=== PATIENT | female | born 1985 | race Caucasian/White ===

== ENCOUNTER → 2016-11-14 | Outpatient (CLI) | payer OTHER ==
[~2016-11-14] MED LIST: FLUO40CA8 PO; PRENTAB26 PO; PRLSR20 PO
[2016-11-16 16:23] LABS: CHLAMYDIA TRACH RNA*** NOT DETECTED (NOT DETECTED); GC (NEIS GONORRHOEAE)RNA** NOT DETECTED (NOT DETECTED)
== END | disposition home or self-care (01) ==
LOC: C.LABSPEC 14:34
PROVIDERS: ATTEND Obstetrics & Gynecology
DX: Z34.81 Encounter for supervision of other normal pregnancy, first trimester (principal)

== ENCOUNTER → 2017-02-01 | Outpatient (CLI) | payer OTHER ==
[2017-02-01 12:47] LABS: BASO % 0.1 %; BASO ABS # 0.01 K/uL (0-0.2); COMPLETE YES; EOS % 0.8 %; HEMATOCRIT 36.5 % (37-47); IG% 0.4 %; LYMPH % 22.3 %; LYMPH ABS # 1.74 K/uL (1.2-3.4); MEAN CELL VOLUME 87.3 fL (80-100); MEAN CORPUSCULAR HEMOGLOBIN 29.7 pg (25-34); MEAN PLATELET VOLUME 10.8 fL (7.4-10.4); MONO % 4.2 %; NEUT % 72.2 %; PLATELET COUNT 225 K/uL (130-400); RED BLOOD COUNT 4.18 M/uL (4.2-5.4)
[2017-02-01 13:07] LABS: GTGD 50 Grams
== END | disposition home or self-care (01) ==
LOC: C.LAB 09:21
PROVIDERS: ATTEND Obstetrics & Gynecology
DX: Z34.81 Encounter for supervision of other normal pregnancy, first trimester (principal); Z3A.00 Weeks of gestation of pregnancy not specified

== ENCOUNTER → 2017-02-28 | Outpatient (CLI) | payer OTHER | END | disposition home or self-care (01) | LOC: C.LAB 08:08 | PROVIDERS: ATTEND Obstetrics & Gynecology | DX: O99.810 Abnormal glucose complicating pregnancy (principal); Z34.00 Encounter for supervision of normal first pregnancy, unspecified trimester ==

== ENCOUNTER 2017-05-26 09:33 | Outpatient (CLI) | payer OTHER ==
[~2017-05-26] VITALS: Ht 157.5 cm; Wt 83.0 kg
[2017-05-26] MEDS ORDERED: TERBUTALINE SULFATE 1 MG/ML VIAL SQ PRN (10:45)
[2017-05-26] MEDS ORDERED: NIFEdipine 10 MG CAP PO STA (10:54)
[2017-05-26] MEDS ORDERED: D5W AND LACTATED RINGERS 500 ML IV ONE (11:00)
--- NOTE | 2017-05-26 11:12 | HISTORY & PHYSICAL EXAMINATION ---
DATE OF ADMISSION: 05/26/2017 CHIEF COMPLAINT: Intrauterine at 33 weeks gestation and contractions. HISTORY OF PRESENT ILLNESS: The patient is a 31-year-old 2, para 1, general health is good. well dated. Due date is 07/14/2017. No problems. Her first delivery was in 2016, boy, 8 pounds 1 ounce, spontaneous vaginal delivery, 40 weeks, 36 hour labor, and 2 hour push. I was called on the morning of admission since she was having contractions, starting at about 07:30 a.m., having them every 4-5 minutes and radiating to her back. No bleeding. No leakage of fluid. She was told to come up to maternity for evaluation. PAST MEDICAL HISTORY: She had got a 2-year-old boy in good health. ALLERGIES: LAMICTAL AND TRINTELLIX. PAST SURGICAL HISTORY: No previous surgery. No significant medical conditions. SOCIAL HISTORY: No smoking. No alcohol intake. She works at [employer]. FAMILY HISTORY: Mom is 51, has cardiac disease and high blood pressure. Father 52 in good health. 1 brother and 1 sister in good health. REVIEW OF SYSTEMS: HEAD: No symptoms of frequent or severe headaches. EYES: No symptoms of blurred vision or double vision. EARS: No symptoms of frequent ear infections or difficulty hearing. PHYSICAL EXAMINATION: GENERAL: Well-developed and well-nourished 31-year-old white female, alert and oriented x3 and cooperative, in no acute distress, appears her stated age. EYES: Conjunctivae are pink. Sclerae white. No evidence of jaundice. EARS: Had normal light reflex bilaterally. NOSE: Had normal mucosa. Septum is midline. There were no polyps. THROAT: No erythema or evidence of infection. Teeth are in good state of repair. HEAD: Normocephalic. Normal distribution of hair. NECK: Supple. Trachea midline. Thyroid is not enlarged. There is no adenopathy appreciated. Both carotids are of good intensity. CHEST: Clear to auscultation and percussion. No wheezes, rales or rhonchi appreciated. ABDOMEN: Soft and nontender. Consistent with a 33-week fetus. No CVA tenderness. No fundal tenderness. PELVIC: Presenting part was floating. Cervix posterior, uneffaced and closed. MUSCULOSKELETAL: Revealed no calf tenderness. IMPRESSIONS OF THIS CASE: Intrauterine at 33 weeks gestation, rule out premature labor.
[2017-05-26] MEDS ORDERED: LACTATED RINGER'S 1000ML 1,000 ML IV SCH ×2 (11:15)
[2017-05-26] MEDS ORDERED: NURSING VERBAL MED ORDER ONE (11:15)
[2017-05-26 13:00] VITALS: Ht 157.5 cm; Wt 83.0 kg
== END 2017-05-26 13:40 | disposition home or self-care (01) ==
LOC: C.LD 09:33 → C.OPB 09:33
PROVIDERS: ATTEND Obstetrics & Gynecology
DX: O62.9 Abnormality of forces of labor, unspecified (principal); Z3A.33 33 weeks gestation of pregnancy; Z82.49 Family history of ischemic heart disease and other diseases of the circulatory system

== ENCOUNTER → 2017-06-08 | Outpatient (CLI) | payer OTHER ==
[~2017-06-08] MED LIST changes: -PRLSR20 PO
== END | disposition home or self-care (01) ==
LOC: C.LABSPEC 14:42
PROVIDERS: ATTEND Obstetrics & Gynecology
DX: J02.9 Acute pharyngitis, unspecified (principal)

== ENCOUNTER → 2017-06-14 | Outpatient (CLI) | payer OTHER | END | disposition home or self-care (01) | LOC: C.LABSPEC 14:57 | PROVIDERS: ATTEND Obstetrics & Gynecology | DX: Z34.83 Encounter for supervision of other normal pregnancy, third trimester (principal) ==

== ENCOUNTER 2017-06-22 10:46 | Observation (INO) | payer OTHER ==
[~2017-06-22] VITALS: Ht 157.5 cm; Wt 83.5 kg
[2017-06-22 11:46] VITALS: Ht 157.5 cm; Wt 83.5 kg
--- NOTE | 2017-06-22 12:24 | DIAGNOSTIC IMAGING REPORT ---
Study: biophysical profile HISTORY: Abdominal pain FINDINGS: biophysical profile is 8 out of a possible 8. heart rate is 133 bpm. Amniotic fluid index is 14 cm. Fetus is cephalic in presentation. Placenta is posterior. No evidence for placenta previa or abruptio placenta. The maternal cervix is not well seen. Russell Sepulveda contractions were noted during the exam. IMPRESSION: Normal biophysical profile. 8 out of a possible 8. Electronically signed by: Simone Linda M.D. 06/22/2017 12:23 PM Dictated Date/Time: 06/22/2017 12:21 PM
[2017-06-22] MEDS ORDERED: LACTATED RINGER'S 1000ML 500 ML IV ONE (12:56)
[2017-06-22 13:36] LABS: BASO % 0.1 %; BASO ABS # 0.02 K/uL (0-0.2); EOS % 0.2 %; EOS ABS # 0.03 K/uL (0-0.5); HEMATOCRIT 35.7 % (37-47); IG# 0.17 K/uL (0.00-0.02); LYMPH % 15.5 %; LYMPH ABS # 2.14 K/uL (1.2-3.4); MEAN CELL VOLUME 84.2 fL (80-100); MEAN CORPUSCULAR HEMOGLOBIN 28.3 pg (25-34); MEAN CORPUSCULAR HGB CONC 33.6 g/dl (32-36); MEAN PLATELET VOLUME 10.7 fL (7.4-10.4); MONO % 7.8 %; MONO ABS # 1.08 K/uL (0.11-0.59); NEUT % 75.2 %; NEUT ABS # 10.39 K/uL (1.4-6.5); PLATELET COUNT 233 K/uL (130-400); RED CELL DISTRIBUTION WIDTH CV 13.7 % (11.5-14.5); RED CELL DISTRIBUTION WIDTH SD 41.7 fL (36.4-46.3); WHITE BLOOD COUNT 13.83 K/uL (4.8-10.8)
--- NOTE | 2017-06-22 14:10 | HISTORY & PHYSICAL EXAMINATION ---
DATE OF ADMISSION: 06/22/2017 CHIEF COMPLAINT: Abdominal pain, contractions, intrauterine 36 weeks 6 days. HISTORY OF PRESENT ILLNESS: The patient is a 32-year-old 2, para 1. Her general health is good. Her present has been uneventful except for an episode of premature labor at 33 weeks gestation, at which point she was given a shot of terbutaline and placed on Procardia. Procardia was stopped about a week to 10 days ago. Her due date for this is 07/14/2017. OBSTETRICAL HISTORY: In 2014 she had an 8 pound 1 ounce boy, spontaneous vaginal delivery, 40 weeks, after an induction and a 2-hour push. Present course complicated by an episode of premature labor at 33 weeks. She woke up this morning about 9:15 a.m. She experienced severe abdominal pain and cramping, was localized mainly on the left side. She had no bleeding and she was told to come to maternity for evaluation. ALLERGIES: TRINTELLIX AND LAMICTAL. PAST SURGICAL HISTORY: She had wisdom teeth removed. PAST MEDICAL HISTORY: She is on Prozac 20 mg a day. Has a 2-year-old boy in good health. SOCIAL HISTORY: No smoking. No excessive alcohol intake. Works at [employer]. FAMILY HISTORY: Mom is 51, has heart disease. Father 52 in good health. One brother and one sister in good health. REVIEW OF SYSTEMS: HEAD: No symptoms of frequent or severe headaches. EYES: No symptoms of blurred vision or double vision. PHYSICAL EXAMINATION: GENERAL: Well-developed, well-nourished 32-year-old white female, alert, oriented x3 and cooperative, in no acute distress, appeared her stated age. EYES: Conjunctivae are pink. Sclerae white. No evidence of jaundice. EARS: Normal light reflex bilaterally. HEART: Regular rhythm. S1, S2 were normal. ABDOMEN: Soft and nontender. No abdominal tenderness. Gravid uterus, consistent with a 36 weeks' gestational size . PELVIC: Revealed a vertex presentation about a -1 station, 1-2 cm posterior, about 80% effaced. MUSCULOSKELETAL: Revealed no calf tenderness. IMPRESSIONS OF THIS CASE: Intrauterine 36 weeks 6 days, rule out labor. [facility]
[2017-06-22] MEDS ORDERED: IV FLUIDS COMPLETED PRN (16:15)
[2017-06-22] MEDS ORDERED: BUTORPHANOL TARTRATE 1 MG/ML VIAL IV PRN (18:00)
[2017-06-22] MEDS ORDERED: CALCIUM CARBONATE 500 MG CHEWABLE PO PRN (18:00)
[2017-06-22] MEDS ORDERED: ACETAMINOPHEN 325 MG TAB PO PRN (18:00)
[2017-06-22] MEDS: LACTATED RINGER'S 1000ML 1,000 ML IV SCH (18:03)
[2017-06-22 19:55] VITALS: BP 114/63; PULSE 73; TEMP 36.8
[2017-06-23 00:45] VITALS: BP 104/65; PULSE 69; TEMP 37.2; O2SAT 97
[2017-06-23] MEDS: LACTATED RINGER'S 1000ML 1,000 ML IV SCH (00:45)
[2017-06-23 04:25] VITALS: BP 108/62; PULSE 65; TEMP 36.8
[2017-06-23 07:18] VITALS: BP 100/59; PULSE 62
[2017-06-23 07:26] VITALS: TEMP 36.3
--- NOTE | 2017-06-23 08:49 | Progress Note ---
Subjective Jun 23, 2017. Subjective conversation w/ patient Ambulation: ambulating normally Voiding: no voiding problems Diet Tolerance: Regular Diet Review of Systems Constitutional: + fever Objective Vital Signs Date Time Temp Pulse Resp B/P (MAP) Pulse Ox O2 Delivery O2 Flow Rate FiO2 06/23/17 07:26 36.3 06/23/17 07:18 62 16 100/59 06/23/17 04:25 36.8 65 18 108/62 06/23/17 00:45 37.2 69 18 104/65 06/23/17 00:45 97 Room Air 06/22/17 19:55 36.8 73 16 114/63 Physical Exam General Appearance: WELL-APPEARING Respiratory/Chest: lungs clear Fundus: Non-Tender Extremities: no pedal edema, no calf tenderness Laboratory Results Last 24 Hours Test 06/22/17 13:23 06/23/17 07:00 White Blood Count 13.83 K/uL Red Blood Count 4.24 M/uL Hemoglobin 12.0 g/dL Hematocrit 35.7 % Mean Corpuscular Volume 84.2 fL Mean Corpuscular Hemoglobin 28.3 pg Mean Corpuscular Hemoglobin Concent 33.6 g/dl Platelet Count 233 K/uL Mean Platelet Volume 10.7 fL Neutrophils (%) (Auto) 75.2 % Lymphocytes (%) (Auto) 15.5 % Monocytes (%) (Auto) 7.8 % Eosinophils (%) (Auto) 0.2 % Basophils (%) (Auto) 0.1 % Neutrophils # (Auto) 10.39 K/uL Lymphocytes # (Auto) 2.14 K/uL Monocytes # (Auto) 1.08 K/uL Eosinophils # (Auto) 0.03 K/uL Basophils # (Auto) 0.02 K/uL RDW Standard Deviation 41.7 fL RDW Coefficient of Variation 13.7 % Immature Granulocyte % (Auto) 1.2 % Immature Granulocyte # (Auto) 0.17 K/uL Urine Color YELLOW Urine Appearance CLEAR Urine pH 7.5 Urine Specific [place] 1.010 Urine Protein NEG Urine Glucose (UA) NEG Urine Ketones NEG Urine Occult Blood NEG Urine Nitrite NEG Urine Bilirubin NEG Urine Urobilinogen NEG Urine Leukocyte Esterase NEG Urine WBC (Auto) 1-5 /hpf Urine RBC (Auto) 0-4 /hpf Urine Hyaline Casts (Auto) 1-5 /lpf Urine Epithelial Cells (Auto) >30 /lpf Urine Bacteria (Auto) NEG Assessment and Plan Continue Routine Care: continue routine care
--- NOTE | 2017-06-23 08:51 | Discharge Instructions ---
Discharge Instructions Date of Service Jun 23, 2017. Admission Reason for Admission: R/O Labor Discharge Discharge Diagnosis / Problem: false labor Discharge Goals Goal(s): Continuing OB care Activity Recommendations Activity Limitations: as noted below . Current Hospital Diet Patient's current hospital diet: Regular Diet Discharge Diet Recommended Diet: Regular Diet Pending Studies Studies pending at discharge: no Medical Emergencies . Who to Call and When: Medical Emergencies: If at any time you feel your situation is an emergency, please call 911 immediately. . Non-Emergent Contact Non-Emergency issues call your: Cvicu Rn Call Non-Emergent contact if: temperature is above 100.5 . . "Provider Documentation" section prepared by Ashwin Merritt. . VTE Core Measure Inpt VTE Proph given/why not?: Treatment not indicated
--- NOTE | 2017-06-23 09:14 | DISCHARGE SUMMARY ---
HOSPITAL COURSE: Mrs. Lee was about 36 weeks 6 days and she was admitted for acute abdominal pain. It was suspected that might be premature labor, was located mainly on the left side. She had difficulty walking or ambulating. It was so bad. When she called the office, she was told to go to maternity for evaluation, put her on the monitor. Monitor strip looked good. She did have few sporadic contractions. We hydrated her with IV fluids, got a reactive nonstress test, did a biophysical profile which was 8/8. Checked her cervix, which was unchanged from her previous office visit. She continued to have pain and discomfort throughout the day. We kept her on the monitor overnight, monitored her and gradually during the night, the contractions and abdominal pains slowly started to subside. On the morning after admission, she was ambulating well, eating well and was ready for discharge. We assumed she had a discharge diagnosis of false labor, but were unable to product picker any specific cause for the pain other than that. Her monitor tracings were always good. Her biophysical was 8/8. Her cervix was unchanged. She had no bleeding or vaginal discharge of any significance. She was then discharged to resume her routine care in the office.
== END 2017-06-23 09:14 | disposition home or self-care (01) ==
LOC: C.OPB 10:46 → C.LD 10:46 → C.OBG 15:00 → C.OPB 15:00 → C.OBG 16:50
PROVIDERS: ADMIT Obstetrics & Gynecology; ATTEND Obstetrics & Gynecology
DX: O99.89 Other specified diseases and conditions complicating pregnancy, childbirth and the puerperium (principal); R10.9 Unspecified abdominal pain; Z3A.36 36 weeks gestation of pregnancy; Z88.8 Allergy status to other drugs, medicaments and biological substances; Z98.818 Other dental procedure status; Z82.49 Family history of ischemic heart disease and other diseases of the circulatory system

== ENCOUNTER 2017-07-13 06:23 | Inpatient (IN) | payer OTHER ==
[~2017-07-13] VITALS: Ht 157.5 cm; Wt 84.1 kg
[2017-07-13 08:13] VITALS: Ht 157.5 cm; Wt 84.1 kg
[2017-07-13] MEDS ORDERED: FOLI1TAB8 PO (08:16)
[2017-07-13] MEDS ORDERED: LACTATED RINGER'S 1000ML 1,000 ML IV PRN (09:00)
[2017-07-13] MEDS ORDERED: MISOPROSTOLTAB 50 MCG TAB PO ONE (09:00)
[2017-07-13 09:25] LABS: MEAN CELL VOLUME 83.3 fL (80-100); MEAN CORPUSCULAR HGB CONC 32.4 g/dl (32-36); MEAN PLATELET VOLUME 11.1 fL (7.4-10.4); PLATELET COUNT 228 K/uL (130-400); RED CELL DISTRIBUTION WIDTH CV 14.7 % (11.5-14.5); RED CELL DISTRIBUTION WIDTH SD 44.7 fL (36.4-46.3); WHITE BLOOD COUNT 10.64 K/uL (4.8-10.8)
[2017-07-13] MEDS ORDERED: NURSING VERBAL MED ORDER ONE (17:00)
[2017-07-13] MEDS ORDERED: DINOPROSTONE 10 MG INSERT PV ONE (17:30)
[2017-07-14] MEDS ORDERED: LACTATED RINGER'S 1000ML 500 ML IV PRN ×2 (05:58→09:59)
[2017-07-14] MEDS ORDERED: OXYTOCIN 30 UNITS/500ML NSS IV PRN ×2 (06:00→14:00)
[2017-07-14] MEDS ORDERED: BUTORPHANOL TARTRATE 1 MG/ML VIAL IV PRN (08:30)
[2017-07-14] MEDS ORDERED: FENTANYL CITRATE INJ 50 MCG/1 ML 2 ML VIAL ONE (08:36)
[2017-07-14] MEDS ORDERED: BUPIVACAINE 0.25% 30 ML VIAL ONE (08:36)
[2017-07-14] MEDS ORDERED: EpHEDrine SULFATE INJ 50 MG/ML AMP ONE (08:36)
[2017-07-14] MEDS ORDERED: FENTANYL 2MCG/ML ROPIV 1.25MG/ML 100ML BAG EPI ONE (08:37)
[2017-07-14] MEDS: LACTATED RINGER'S 1000ML 1,000 ML IV SCH ×2 (09:27→09:28)
[2017-07-14] MEDS ORDERED: NALOXONE HCL INJ 1 MG in SODIUM CHLORIDE 0.9% 1000ML 1,000 ML IV PRN (09:59)
[2017-07-14] MEDS ORDERED: EpHEDrine SULFATE INJ 50 MG/ML AMP IV PRN (10:00)
[2017-07-14] MEDS ORDERED: DiphenhydrAMINE HCL 50 MG/ML VIAL IV PRN (10:00)
[2017-07-14] MEDS ORDERED: NALOXONE HCL INJ 0.4 MG/1 ML VIAL/CARP IV PRN (10:00)
[2017-07-14] MEDS ORDERED: FENTANYL 2MCG/ML ROPIV 1.25MG/ML 100ML BAG EPI PRN (10:00)
[2017-07-14] MEDS ORDERED: ONDANSETRON INJ 2 MG/ML 2 ML VIAL IV PRN (10:00)
[2017-07-14] MEDS ORDERED: NALBUPHINE HCL INJ 10 MG/ML AMP IV PRN (10:00)
[2017-07-14] MEDS ORDERED: FLUOXETINE HCL 20 MG CAP PO ONE (11:30)
[2017-07-14] MEDS ORDERED: FLUOXETINE PO ONE ×2 (11:30)
[2017-07-14] MEDS ORDERED: ACETAMINOPHEN 325 MG TAB PO PRN (14:00)
[2017-07-14] MEDS ORDERED: SUPERCREAM 0.870 % 15GM JAR EXT PRN (14:00)
[2017-07-14] MEDS ORDERED: BENZOCAINE 20% AER SPR 82.5 GM CAN EXT PRN (14:00)
[2017-07-14] MEDS ORDERED: HYDROCORTISONE ACETATE 25 MG SUPP PR PRN (14:00)
[2017-07-14] MEDS ORDERED: DIPHTHERIA/TETANUS/PERTUSSIS 0.5 ML SYR/VIAL IM. ONE (14:00)
[2017-07-14] MEDS ORDERED: ACETAMINOPHEN/CODEINE 300/30MG TAB PO PRN ×2 (14:00)
[2017-07-14] MEDS ORDERED: LANOLIN OINT EXT PRN (14:00)
--- NOTE | 2017-07-14 14:43 | Anesthesia Procedure Note ---
Anesthesia Epidural Removal Nt Date & Time Jul 14, 2017 at 14:43 Vital Signs Pain Intensity: 8.0 Notes Mental Status: alert / awake / arousable, participated in evaluation Nausea / Vomiting: adequately controlled Pain: adequately controlled Airway Patency, RR, SpO2: stable & adequate BP & HR: stable & adequate Hydration State: stable & adequate Neuraxial Anesthesia: was administered, sensory block is resolving Anesthetic Complications: no major complications apparent, pt satisfied with anesthetic care Epidural: removed without complications, with tip intact
--- NOTE | 2017-07-14 14:48 | DELIVERY SUMMARY ---
DATE OF OPERATION: 07/14/2017 HOSPITAL COURSE: Mrs. Lee is a 2, para 2, blood type is O positive, rubella immune, vaginal beta strep negative. She requested induction due to a lot of pelvic pain and pressure and also she had a 40-minute drive to the hospital, which she was concerned about. On the day of admission, she was at 39+ weeks gestation, which was confirmed by a first trimester ultrasound. Her cervix was ripe. She was 3-4 cm, soft, vertex presentation. On admission, she was given p.o. Cytotec 50 mcg. She started to develop a contraction pattern. About 5 hours later, she had a Cervidil tape. We had left Cervidil tape overnight to get out the next morning, at which time, she was 4+ and then we started her on IV Pitocin. She developed good regular labor pattern on IV Pitocin. Membranes ruptured spontaneously. Fluid was clear. She eventually had a dose of Stadol and epidural for pain control. With the epidural, she went to full dilatation. Head came down. She pushed out a live via direct occiput posterior position. There was a nuchal cord x2, which was reduced over the head. was delivered without difficulty. My own estimation 1 and 5 minute Apgars were 8 and 9 respectively. Cord was clamped, cut by the father. Cord blood was taken. Inspection of the perineum revealed a second-degree laceration. With IV Pitocin running, the placenta was removed intact. Uterus contracted nicely. I then repaired the second-degree laceration in 2 layers. I did a deep layer to approximate the rectovaginal septum and bolstered the rectal sphincter capsule. I then used the second layer to approximate the vaginal mucosa out and to beyond the hymenal ring, used a deep suture to approximate the bulbocavernosus muscle, separate deep suture to approximate the perineal body and then a running subcuticular suture to approximate the perineal skin edges. Following this, I removed the sponges in the vagina and noted that she had a left lateral vaginal wall hematoma of about 4 cm in diameter, tense. I cut it open with the scissors. I evacuated the clot, found the extent of the hematoma, and then I oversewed the edges with a continuous interlocking suture of heavy duty Vicryl. Following this, I re-palpated the area. There was no additional hematoma formation. Hemostasis was good. The patient tolerated the procedure well. Estimated blood loss was 500 mL. I attest to the content of the Intraoperative Record and any orders documented therein. Any exception s are noted below.
[2017-07-14] MEDS: IBUPROFEN 600 MG TAB PO PRN ×2 (16:11→21:07)
[2017-07-14 17:00] VITALS: BP 105/64; PULSE 77; TEMP 36.7; O2SAT 98
[2017-07-14] MEDS: OXYCODONE/ACETAMINOPHEN 5-325 TAB PO PRN (19:53)
[2017-07-14] MEDS: DOCUSATE SODIUM 100 MG CAP PO SCH (19:54)
[2017-07-14 19:55] VITALS: BP 109/66; PULSE 83; TEMP 36.9; O2SAT 98
[2017-07-14 23:15] VITALS: BP 98/59; PULSE 70; TEMP 37; O2SAT 98
[2017-07-15] MEDS: OXYCODONE/ACETAMINOPHEN 5-325 TAB PO PRN ×2 (02:07→08:30)
[2017-07-15] MEDS: IBUPROFEN 600 MG TAB PO PRN (02:07)
[2017-07-15 03:40] VITALS: BP 101/62; PULSE 68; TEMP 36.6; O2SAT 97
[2017-07-15 07:40] VITALS: BP 103/63; PULSE 73; TEMP 36.5
[2017-07-15 07:55] LABS: HEMATOCRIT 31.4 % (37-47); HEMOGLOBIN 10.2 g/dL (12.0-16.0)
[2017-07-15] MEDS ORDERED: PRENATAL VITAMIN TAB PO SCH (08:00)
[2017-07-15] MEDS ORDERED: FLUOXETINE HCL 20 MG CAP PO SCH (08:00)
[2017-07-15] MEDS ORDERED: FERROUS SULFATE 325 MG TAB PO SCH (08:00)
[2017-07-15] MEDS ORDERED: FLUOXETINE PO SCH ×2 (08:00)
[2017-07-15] MEDS: DOCUSATE SODIUM 100 MG CAP PO SCH (08:45)
--- NOTE | 2017-07-15 09:49 | Progress Note ---
Subjective Jul 15, 2017. Subjective conversation w/ patient Ambulation: ambulating normally Voiding: no voiding problems Passing Gas: Yes Diet Tolerance: Regular Diet Lochia: Small Feeding Type: Breast Feeding Review of Systems Constitutional: + fever Objective Vital Signs Date Time Temp Pulse Resp B/P (MAP) Pulse Ox O2 Delivery O2 Flow Rate FiO2 07/15/17 07:40 36.5 73 18 103/63 (76) Room Air 07/15/17 07:40 Room Air 07/15/17 03:40 36.6 68 16 101/62 (75) 97 Room Air 07/14/17 23:15 98 Room Air 07/14/17 23:15 37.0 70 18 98/59 (72) 98 Room Air 07/14/17 19:55 36.9 83 18 109/66 (80) 98 Room Air 07/14/17 17:00 Room Air 07/14/17 17:00 36.7 77 18 105/64 (78) 98 Room Air Physical Exam General Appearance: WELL-APPEARING Abdomen: non tender Fundus: Firm, Non-Tender Laboratory Results Last 24 Hours Test 07/15/17 07:41 Hemoglobin 10.2 g/dL Hematocrit 31.4 % Assessment and Plan Post- Day#: 1 Continue Routine Care: patient request discharge
--- NOTE | 2017-07-15 09:50 | Discharge Instructions ---
Discharge Instructions Date of Service Jul 15, 2017. Admission Reason for Admission: Induction Discharge Discharge Diagnosis / Problem: left vaginal hematoma Discharge Goals Goal(s): Routine recovery after delivery Activity Recommendations Activity Limitations: as noted below ACTIVITY RECOMMENDATIONS: * Gradual return to full activity over the next 2-3 weeks. * No lifting - nothing heavier than baby over the next 2-3 weeks. * Do not engage in vigorous exercise, sexual activity or sports until cleared by your physician. * Do not drive or operate any motorized equipment until cleared by your physician. * You may shower/bathe daily. DIET: Resume Previous Diet If Breast-feeding: * Increase caloric intake by 500 calories, eat 3 well balanced meals, 2 high protein snacks a day and drink 6-8 8oz. glasses of fluid per day. BREAST CARE: If you are not breast feeding: * Wear a supportive bra 24 hours a day for one to two weeks. * Avoid stimulating your breasts and nipples as much as possible during the first few weeks after delivery. * When taking a shower, have the warm water hit your back, not breasts. * When your breasts feel full, apply ice packs. Usually three to four times a day helps ease the discomfort. * Take a mild pain medication (Tylenol / Motrin) when you are uncomfortable. If breast feeding: * Use breast milk to lubricate nipples. Lansinoh cream may be used for sore nipples. You do not need to remove cream prior to breast feeding. If using a different brand of cream, check the label for directions regarding removal of cream prior to nursing. * Wear a supportive bra. * If having problems with breasts or breast feeding, call a business consultant or your health care provider. OVER THE COUNTER MEDICATION: * For discomfort or pain, you may use Acetaminophen (Tylenol), Ibuprofen (Advil ), or Naproxen (Aleve) following the package directions. * For constipation you may use Colace following the package directions. SPECIAL CARE INSTRUCTIONS: * Vaginal rest (no tampons, douching, intercourse) until after doctor 's visit. * control as discussed with doctor. * Verbalizes understanding of car seat law as reviewed with patient nursing. * Car Seat hand-out given and reviewed with patient by nursing. * Shaken baby information reviewed with patient by nursing. Call you doctor if: * Temperature greater than or equal to 100.4 degrees F or 38.0 degrees C. Take your temperature twice daily for a week. * Bleeding becomes heavier than the heaviest part of your period - saturating a sanitary pad within an hour. * Passing large clots. * Bleeding has a foul smelling odor. * Signs and symptoms of phlebitis: leg pain, warm, red or swollen area on leg. * "Baby Blues" lasting longer than two weeks. ++ If you have had a and incision has increased pain, redness, swelling, presence of any drainage, or if the incision starts to open up. If you have any questions or concerns, call your health care practitioner at [phone]. FOLLOW-UP VISIT: Please call the office at to schedule a 6 week examination. . Instructions / Follow-Up Instructions / Follow-Up ACTIVITY RECOMMENDATIONS: * Gradual return to full activity over the next 2-3 weeks. * No lifting - nothing heavier than baby over the next 2-3 weeks. * Do not engage in vigorous exercise, sexual activity or sports until cleared by your physician. * Do not drive or operate any motorized equipment until cleared by your physician. * You may shower/bathe daily. DIET: Resume Previous Diet If Breast-feeding: * Increase caloric intake by 500 calories, eat 3 well balanced meals, 2 high protein snacks a day and drink 6-8 8oz. glasses of fluid per day. BREAST CARE: If you are not breast feeding: * Wear a supportive bra 24 hours a day for one to two weeks. * Avoid stimulating your breasts and nipples as much as possible during the first few weeks after delivery. * When taking a shower, have the warm water hit your back, not breasts. * When your breasts feel full, apply ice packs. Usually three to four times a day helps ease the discomfort. * Take a mild pain medication (Tylenol / Motrin) when you are uncomfortable. If breast feeding: * Use breast milk to lubricate nipples. Lansinoh cream may be used for sore nipples. You do not need to remove cream prior to breast feeding. If using a different brand of cream, check the label for directions regarding removal of cream prior to nursing. * Wear a supportive bra. * If having problems with breasts or breast feeding, call a business consultant or your health care provider. OVER THE COUNTER MEDICATION: * For discomfort or pain, you may use Acetaminophen (Tylenol), Ibuprofen (Advil ), or Naproxen (Aleve) following the package directions. * For constipation you may use Colace following the package directions. SPECIAL CARE INSTRUCTIONS: * Vaginal rest (no tampons, douching, intercourse) until after doctor 's visit. * control as discussed with doctor. * Verbalizes understanding of car seat law as reviewed with patient nursing. * Car Seat hand-out given and reviewed with patient by nursing. * Shaken baby information reviewed with patient by nursing. Call you doctor if: * Temperature greater than or equal to 100.4 degrees F or 38.0 degrees C. Take your temperature twice daily for a week. * Bleeding becomes heavier than the heaviest part of your period - saturating a sanitary pad within an hour. * Passing large clots. * Bleeding has a foul smelling odor. * Signs and symptoms of phlebitis: leg pain, warm, red or swollen area on leg. * "Baby Blues" lasting longer than two weeks. ++ If you have had a and incision has increased pain, redness, swelling, presence of any drainage, or if the incision starts to open up. If you have any questions or concerns, call your health care practitioner at [phone]. FOLLOW-UP VISIT: Please call the office at to schedule a 6 week examination. Current Hospital Diet Patient's current hospital diet: Regular OB Diet Discharge Diet Recommended Diet: Regular Diet Pending Studies Studies pending at discharge: no Medical Emergencies . Who to Call and When: Medical Emergencies: If at any time you feel your situation is an emergency, please call 911 immediately. . Non-Emergent Contact Non-Emergency issues call your: Electric Installer Call Non-Emergent contact if: temperature is above 100.5 . . "Provider Documentation" section prepared by Ashwin Merritt. .
[2017-07-15 12:15] VITALS: BP 103/65; PULSE 77; TEMP 36.3
[2017-07-15 14:17] VITALS: BP_DIAS 65; PULSE 77; TEMP 36.3
[2017-07-15] MEDS ORDERED: BISACODYL 5 MG TABEC PO ONE (20:00)
[2017-07-16] MEDS ORDERED: BISACODYL 10 MG SUPP PR PRN (07:00)
== END 2017-07-15 14:52 | disposition home or self-care (01) | DRG 775 ==
LOC: C.LD 07:26 → C.OBG 07-14 17:06
PROVIDERS: ADMIT Obstetrics & Gynecology; ATTEND Obstetrics & Gynecology
PROC: 3E0P7GC Introduction of Other Therapeutic Substance into Female Reproductive, Via Natural or Artificial Opening (ICD-10-PCS; 2017-07-13)
PROC: 0KQM0ZZ Repair Perineum Muscle, Open Approach (ICD-10-PCS; principal; 2017-07-14)
PROC: 10E0XZZ Delivery of Products of Conception, External Approach (ICD-10-PCS; principal; 2017-07-14)
DX: O26.893 Other specified pregnancy related conditions, third trimester (principal); R10.2 Pelvic and perineal pain; O70.1 Second degree perineal laceration during delivery; O69.81X0 Labor and delivery complicated by cord around neck, without compression, not applicable or unspecified; Z3A.39 39 weeks gestation of pregnancy; Z37.0 Single live birth

== ENCOUNTER → 2017-09-03 | Outpatient (CLI) | payer OTHER ==
[~2017-09-03] MED LIST changes: +FOLI1TAB8 PO
== END | disposition home or self-care (01) ==
LOC: C.PAPS 15:37
PROVIDERS: ATTEND Obstetrics & Gynecology
DX: Z39.2 Encounter for routine postpartum follow-up (principal)

== ENCOUNTER 2017-11-24 05:18 | Emergency (ER) | payer OTHER ==
[~2017-11-24] VITALS: Ht 157.5 cm; Wt 70.0 kg
[2017-11-24 05:21] VITALS: TEMP 36.7; Ht 157.5 cm; Wt 70.0 kg
[2017-11-24] MEDS ORDERED: PROPARACAINE HCL 0.5% OP SOLN 15 ML BTL OP STA (05:40)
[2017-11-24] MEDS ORDERED: FENTANYL CITRATE INJ 50 MCG/1 ML 2 ML VIAL IV ONE ×2 (05:45→07:30)
[2017-11-24] MEDS ORDERED: OXYC-57 PO (05:54)
[2017-11-24] MEDS ORDERED: IBUP-1050 PO (05:54)
[2017-11-24] MEDS ORDERED: NORG1TAB68 PO (05:54)
[2017-11-24] MEDS ORDERED: CYAN500T13 PO (05:54)
[2017-11-24 09:18] VITALS: BP 109/61; PULSE 65; O2SAT 98
--- NOTE | 2017-11-25 01:45 | EMERGENCY ROOM VISIT NOTE ---
History First contact with patient: 05:25 Chief Complaint: EYE PAIN Stated Complaint: CAN'T OPEN EYES OR SEE History of Present Illness The patient is a 32 year old female who presents to the Emergency Room with complaints of severe bilateral eye pain for the past 2 days. The patient's symptoms began 2 days ago after restarting Lamictal for bipolar. The patient states shortly afterwards she began having pain in her eyes that was more of an irritant. She contacted her psychiatrist who had her take an additional dose the next day. The patient took the additional dose and her symptoms again worsened. She went to [facility] emergency department, where she had difficulty opening her eyes for full examination. She did see an planting machine crewman after being seen in the ER, and there was concern that she may have a keratitis. The patient was given a bacitracin and polymyxin ointment. When the patient placed this into her eyes she had a magnitude worsening of her symptoms, which she now rates a 10/10. 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 She states the pain is severe and would cause her to chronic, however even tears burn her eyes and make it more uncomfortable. The patient has stopped the Lamictal and has not been wearing her contact lenses because of her symptoms. She did not bring her glasses with her today. She does not report recent fevers, chills, URI symptoms, or other complaints. Review of Systems More than 10 systems were reviewed and otherwise negative with the exception of history of present illness. Past Medical/Surgical History Medical Problems: (1) No significant medical problems (2) Pain (3) 36 weeks 6 days (4) Premature labor (5) Term Surgical Problems: (1) No significant past surgical history Family History No pertinent family history Social History Smoking Status: Never Smoker Alcohol Use: occasionally Marital Status: single Occupation Status: employed Current/Historical Medications Scheduled Cyanocobalamin (Vitamin B12 500MCG), 500 MCG PO DAILY Norgestimate-Ethinyl Estradiol (Ortho Tri-Cyclen), 1 TAB PO DAILY Scheduled PRN Ibuprofen (Advil), 800 MG PO Q6H PRN for Pain Oxycodone/Acetaminophen 5MG/325MG (Percocet 5MG/325MG), 1 TABLET PO Q6H PRN for Pain Physical Exam Vital Signs Date Time Temp Pulse Resp B/P (MAP) Pulse Ox O2 Delivery O2 Flow Rate FiO2 11/24/17 09:18 65 16 109/61 98 11/24/17 06:54 66 18 106/61 99 Room Air 11/24/17 05:21 36.7 72 16 116/75 98 Room Air Physical Exam VITALS: Vitals are noted on the nurse's note and reviewed by myself. Vital signs stable. GENERAL: Well-developed, well-nourished, white female who appears in severe discomfort. She is laying in a darkened emergency department room with 2 pairs of sunglasses over her eyes. EARS: External ear normal. External auditory canals clear, tympanic membranes pearly martino without erythema or effusion bilaterally. EYES: Examination performed after IV and topical analgesics. Pupils equal round and reactive to light and accommodation. Conjunctivae with mild injection. Slit lamp with fluorescein examination shows a spectacled pattern across the anterior cornea of the right eye. There is some mild haziness over the anterior cornea, but no symptoms into the deep anterior chamber. The left eye appears with a similar spectacle pattern and a small 5:00 lesion concerning for a small ulceration. There is no drainage or discharge from the eyes. NOSE: Patent, turbinates without inflammation or discharge. MOUTH: Mucous membranes moist. Tonsils are not enlarged. Pharynx without erythema, blood, or exudate. Uvula midline. Airway patent. NECK: Supple without nuchal rigidity. No lymphadenopathy. No thyromegaly. Cervical spine is nontender. HEART: Regular rate and rhythm without murmurs gallops or rubs. LUNGS: Clear to auscultation bilaterally without wheezes, rales or rhonchi. No retractions or accessory muscle use. Medical Decision & Procedures Medications Administered Medications (Trade) Dose Ordered Sig/[facility] Route Start Time Stop Time Status Last Admin Dose Admin Fentanyl Citrate (Fentanyl Inj) 50 mcg NOW ONCE IV 11/24/17 05:45 11/24/17 05:46 DC 11/24/17 05:45 50 MCG Fentanyl Citrate (Fentanyl Inj) 50 mcg ONE ONCE IV 11/24/17 07:30 11/24/17 07:31 DC 11/24/17 08:02 50 MCG ED Course Physical exam and history were performed. Nursing notes, EMR, and Medication List were personally reviewed. Patient appears to have bilateral eye pain worsening over the past few days. The patient is known to me as she is employed here at the hospital. She appears significantly uncomfortable from her baseline. IV access was established and the patient was given 50 mcg IV fentanyl for comfort. After administration of the fentanyl I was able to administer Alcaine drops into her bilateral eyes and complete her examination. On examination the patient appears to have several punctate uptake areas that clinically would best correlate with a UV keratitis. The patient does not appear to have obvious exposure to bright UV light that would cause this. The patient did have almost complete resolution of her pain after the Alcaine administration. We were unable to perform a visual acuity as she does not have any of her corrective lenses with her. I did contact ophthalmology, Dr. Elizalde, who indicated that he will open his office this morning, on a Sunday, to specifically see this patient. He would like to follow-up with her at 10 AM. The patient does have someone that can drive her from here to there. The patient and I had a lengthy discussion regarding her findings. I did provide her an additional dose of fentanyl around 7:30 AM and prepared the patient for discharge. The patient was discharged to had to her ophthalmology appointment, and was pleased with this plan. The chart was completed utilizing [employer] Speech Voice Recognition Software. Grammatical errors, random word insertions, pronoun errors, and incomplete sentences are an occasional consequence of this system due to software limitations, ambient noise, and hardware issues. Any formal questions or concerns about the content, text, or information contained within the body of this dictation should be directly addressed to the provider for clarification. . Medical Decision Differential diagnosis includes, but is not limited to: Keratitis, ulceration, allergic reaction, drug reaction, and others Impression Primary Impression: Pain of both eyes Departure Information Dispostion Home / Self-Care Condition GOOD Referrals No Doctor, Assigned (PCP) Steve Elizalde M.D. Forms HOME CARE DOCUMENTATION FORM, IMPORTANT VISIT INFORMATION Patient Instructions My [facility] Additional Instructions You were seen and evaluated today on an emergency basis only. This is not a substitute for, or an effort to provide, complete comprehensive medical care. It is not possible to recognize and treat all injuries or illnesses in a single emergency department visit. For this reason it is recommended that you followup with Dr. Elizalde at 10 AM at his office. He is expecting to see you. If you have any difficulty with this visit please call the emergency department at [phone] and speak with a residential case manager. You are welcome to return to the emergency department anytime with new, worsening, or concerning symptoms.
== END 2017-11-24 09:18 | disposition home or self-care (01) ==
LOC: C.EDB 05:20 → C.EDA 09:18
DX: H57.13 Ocular pain, bilateral (principal); F31.9 Bipolar disorder, unspecified; Z79.3 Long term (current) use of hormonal contraceptives